=== PATIENT | female | born 1945 | race Asian ===

== ENCOUNTER → 2016-09-14 | Outpatient (CLI) | payer OTHER, MEDICAID | LOC: BHCLAF 15:30 | PROVIDERS: ATTEND Internal Medicine Cardiovascular Disease | DX: I25.10 Atherosclerotic heart disease of native coronary artery without angina pectoris (principal); Z95.5 Presence of coronary angioplasty implant and graft; E78.5 Hyperlipidemia, unspecified; R53.83 Other fatigue | CPT/HCPCS: 93005-PO ==

== ENCOUNTER → 2016-09-21 | Outpatient (CLI) | payer OTHER, MEDICAID | LOC: BHFA 11:30 | PROVIDERS: ATTEND Internal Medicine Cardiovascular Disease | DX: I25.10 Atherosclerotic heart disease of native coronary artery without angina pectoris (principal) ==

== ENCOUNTER → 2016-11-15 | Outpatient (CLI) | payer OTHER, MEDICAID | LOC: BRMIMAGING 15:09 | DX: Z12.31 Encounter for screening mammogram for malignant neoplasm of breast (principal) | CPT/HCPCS: G0202 ==

== ENCOUNTER → 2017-04-11 | Outpatient (CLI) | payer OTHER, MEDICAID | LOC: BHFA 10:00 | PROVIDERS: ATTEND Internal Medicine Interventional Cardiology | DX: R42 Dizziness and giddiness (principal) ==

== ENCOUNTER → 2017-12-28 | Outpatient (CLI) | payer OTHER, MEDICAID | LOC: BRMIMAGING 14:46 | PROVIDERS: ATTEND Family Medicine | DX: Z12.31 Encounter for screening mammogram for malignant neoplasm of breast (principal) ==